=== PATIENT | male | born 1960 | race Asian ===

== ENCOUNTER 2019-01-19 06:31 | Day surgery (SDC) | payer OTHER ==
[2019-01-19] MEDS ORDERED: PROPOFOL 40 ML (12:51)
== END 2019-01-19 11:07 | disposition home or self-care (01) ==
LOC: GIL 06:31
DX: Z12.11 Encounter for screening for malignant neoplasm of colon (principal); K57.30 Diverticulosis of large intestine without perforation or abscess without bleeding; K64.9 Unspecified hemorrhoids; I10 Essential (primary) hypertension; D12.2 Benign neoplasm of ascending colon
CPT/HCPCS: 45380; 88305